=== PATIENT | female | born 1985 | race Caucasian/White ===

== ENCOUNTER 2017-11-01 16:54 | Outpatient (CLI) | payer MEDICAID ==
[2017-11-01] MEDS: LACTATED RINGER'S 1,000 ML IV* (17:50)
[2017-11-01] MEDS: ONDANSETRON 4 MG INJ IV (17:58)
[2017-11-01 18:15] LABS: ABNORMAL IP MESSAGE 1; HEMATOCRIT 38.1 % (37.0-47.0); HEMOGLOBIN 12.7 g/dl (12.0-16.0); MEAN CORPUSCULAR HEMOGLOBIN 27.9 pg (29.0-33.0); MEAN CORPUSCULAR HGB CONC 33.3 g/dl (32.0-37.0); MEAN CORPUSCULAR VOLUME 83.6 fl (82.0-101.0); PLATELET COUNT 319 10^3/UL (140-415); RED BLOOD COUNT 4.56 10^6/ul (4.20-5.40); RED CELL DISTRIBUTION WIDTH 13.9 % (11.5-14.5)
[2017-11-01 18:15] LABS: WHITE BLOOD COUNT 12.9 10^3/ul (4.8-10.8)
[2017-11-01 18:19] LABS: ADD MAN DIFF? YES; POSITIVE DIFF @See below
[2017-11-01 18:42] LABS: ANISOCYTOSIS 1+ (0-0); BAND NEUTROPHILS #M 0.7 10^3/ul (0.0-0.6); BAND NEUTROPHILS % (M) 6 % (0-4); LYMPHOCYTES #M 0.2 10^3/ul (0.8-2.9); LYMPHOCYTES % (M) 2 % (15-51); MICROCYTOSIS 1+ (0-0); PLATELET ESTIMATE NORMAL; SEGMENTED NEUTROPHILS (M) % 92 % (39-77); SMUDGE%M 2 % (0-0)
[2017-11-01 18:52] LABS: ADD UMIC YES; UR ASCORBIC ACID 40 mg/dL (NEGATIVE); UR BACTERIA FEW /HPF (NONE SEEN); UR BILIRUBIN (Dip) NEGATIVE (NEGATIVE); UR BLOOD (Dip) NEGATIVE (NEGATIVE); UR CLARITY CLOUDY (CLEAR); UR COLOR AMBER (YELLOW); UR GLUCOSE (Dip) 1+ mg/dL (NEGATIVE); UR KETONES (Dip) 2+ mg/dL (NEGATIVE); UR LEUKOCYTE ESTERASE (Dip) 2+ Leu/ul (NEGATIVE); UR MUCUS MANY /HPF (NONE SEEN); UR NITRITE (Dip) NEGATIVE (NEGATIVE); UR RBC 2 /HPF (0-5); UR SPECIFIC GRAVITY (Dip) 1.026 (1.003-1.030); UR SQUAMOUS EPITHELIAL CELL MANY /HPF (FEW); UR TOTAL PROTEIN (Dip) 2+ mg/dl (NEGATIVE); UR UROBILINOGEN (Dip) NEGATIVE (NEGATIVE); UR WBC 56 /HPF (0-5)
== END 2017-11-01 19:12 | disposition home or self-care (01) ==
LOC: OBT 16:54 → L-D 16:55 → OBT 19:12
DX: O23.43 Unspecified infection of urinary tract in pregnancy, third trimester (principal); Z3A.32 32 weeks gestation of pregnancy
CPT/HCPCS: 36415; 76817; 76818; 81001; 85025; 96360

== ENCOUNTER 2017-11-28 12:46 | Outpatient (CLI) | payer MEDICAID | END 2017-11-28 13:43 | disposition home or self-care (01) | LOC: OBT 12:46 → L-D 12:47 → OBT 13:43 | DX: O24.419 Gestational diabetes mellitus in pregnancy, unspecified control (principal); Z3A.36 36 weeks gestation of pregnancy | CPT/HCPCS: 76818 ==

== ENCOUNTER 2017-12-02 19:19 | Outpatient (CLI) | payer MEDICAID ==
[2017-12-02] MEDS: CITRIC ACID/SODIUM CITRATE 15 ML CUP PO (21:35)
[2017-12-02 21:46] LABS: ADD MAN DIFF? NO
[2017-12-02 22:06] LABS: WHITE BLOOD COUNT 8.7 10^3/ul (4.8-10.8)
[2017-12-02 22:06] LABS: BASOPHILS % 0.2 % (0.0-2.0); EOSINOPHILS # 0.1 10^3/ul (0.0-0.5); EOSINOPHILS % 0.9 % (0.0-7.0); HEMATOCRIT 33.1 % (37.0-47.0); LYMPHOCYTES # 1.7 10^3/ul (0.8-2.9); LYMPHOCYTES % 19.6 % (15.0-51.0); MEAN CORPUSCULAR HEMOGLOBIN 28.4 pg (29.0-33.0); MEAN CORPUSCULAR HGB CONC 33.2 g/dl (32.0-37.0); MEAN CORPUSCULAR VOLUME 85.3 fl (82.0-101.0); MEAN PLATELET VOLUME 9.9 fl (7.4-10.4); MONOCYTE # 0.5 10^3/ul (0.3-0.9); MONOCYTES % 5.6 % (0.0-11.0); NEUTROPHIL # 6.4 10^3/ul (1.6-7.5); NEUTROPHILS % 73.4 % (39.0-77.0); PLATELET COUNT 304 10^3/UL (140-415); RED BLOOD COUNT 3.88 10^6/ul (4.20-5.40); RED CELL DISTRIBUTION WIDTH 14.4 % (11.5-14.5)
[2017-12-02 22:20] LABS: ALANINE AMINOTRANSFERASE 22 IU/L (13-69); ALBUMIN 3.5 g/dl (3.3-4.9); ALBUMIN/GLOBULIN RATIO 1.06; ALKALINE PHOSPHATASE 156 IU/L (42-121); AMYLASE 66 U/L (11-123); ANION GAP 12 (8-16); ASPARTATE AMINO TRANSFERASE 22 IU/L (15-46); BILIRUBIN,INDIRECT 0.2 mg/dl (0-1.1); BILIRUBIN,TOTAL 0.2 mg/dl (0.2-1.3); BLOOD UREA NITROGEN 14 mg/dl (7-20); CALCIUM 9.2 mg/dl (8.4-10.2); CARBON DIOXIDE 22 mmol/L (21-31); CHLORIDE 108 mmol/L (97-110); CREATININE 0.68 mg/dl (0.44-1.00); GLUCOSE 136 mg/dl (70-220); LIPASE 75 U/L (23-300); SODIUM 138 mmol/L (135-144); TOTAL PROTEIN 6.8 g/dl (6.1-8.1); URIC ACID 4.4 mg/dl (3.1-7.9)
[2017-12-03 00:28] LABS: ADD UMIC NO; UR ASCORBIC ACID NEGATIVE (NEGATIVE); UR BILIRUBIN (Dip) NEGATIVE (NEGATIVE); UR BLOOD (Dip) NEGATIVE (NEGATIVE); UR CLARITY CLEAR (CLEAR); UR COLOR YELLOW (YELLOW); UR GLUCOSE (Dip) 1+ mg/dL (NEGATIVE); UR KETONES (Dip) NEGATIVE (NEGATIVE); UR LEUKOCYTE ESTERASE (Dip) NEGATIVE Leu/ul (NEGATIVE); UR NITRITE (Dip) NEGATIVE (NEGATIVE); UR SPECIFIC GRAVITY (Dip) 1.011 (1.003-1.030); UR TOTAL PROTEIN (Dip) NEGATIVE (NEGATIVE); UR UROBILINOGEN (Dip) NEGATIVE (NEGATIVE)
== END 2017-12-03 00:55 | disposition home or self-care (01) ==
LOC: OBT 19:19 → L-D 19:20
DX: O26.893 Other specified pregnancy related conditions, third trimester (principal); R10.13 Epigastric pain; Z3A.37 37 weeks gestation of pregnancy
CPT/HCPCS: 36415; 76705; 76818; 80053; 81003; 82150; 83690; 84560; 85025

== ENCOUNTER 2017-12-16 20:15 | Inpatient (IN) | payer MEDICAID ==
[2017-12-16] MEDS ORDERED: LIDOCAINE 1% (MPF) 30 ML INJ INJ (20:30)
[2017-12-16] MEDS ORDERED: BUTORPHANOL 2 MG INJ IV (20:30)
[2017-12-16] MEDS ORDERED: OXYTOCIN 30 UNITS/LR 500 ML IV (20:30)
[2017-12-16] MEDS ORDERED: MISOPROSTOL 200 MCG TAB PR (20:30)
[2017-12-16] MEDS ORDERED: IBUPROFEN 600 MG TAB PO (20:30)
[2017-12-16] MEDS ORDERED: CARBOPROST 250 MCG INJ IM (20:30)
[2017-12-16] MEDS ORDERED: METHYLERGONOVINE 0.2 MG INJ IM (20:30)
[2017-12-16] MEDS: LACTATED RINGER'S 1,000 ML IV (21:03)
[2017-12-16 21:22] LABS: ADD MAN DIFF? NO
[2017-12-16 21:23] LABS: WHITE BLOOD COUNT 8.8 10^3/ul (4.8-10.8)
[2017-12-16 21:23] LABS: BASOPHILS % 0.2 % (0.0-2.0); EOSINOPHILS % 0.1 % (0.0-7.0); HEMATOCRIT 35.1 % (37.0-47.0); HEMOGLOBIN 11.7 g/dl (12.0-16.0); LYMPHOCYTES % 23.1 % (15.0-51.0); MEAN CORPUSCULAR HEMOGLOBIN 28.2 pg (29.0-33.0); MEAN CORPUSCULAR HGB CONC 33.3 g/dl (32.0-37.0); MEAN CORPUSCULAR VOLUME 84.6 fl (82.0-101.0); MEAN PLATELET VOLUME 10.4 fl (7.4-10.4); MONOCYTE # 0.4 10^3/ul (0.3-0.9); MONOCYTES % 4.1 % (0.0-11.0); NEUTROPHIL # 6.4 10^3/ul (1.6-7.5); PLATELET COUNT 299 10^3/UL (140-415); RED BLOOD COUNT 4.15 10^6/ul (4.20-5.40); RED CELL DISTRIBUTION WIDTH 14.7 % (11.5-14.5)
[2017-12-16 21:47] LABS: AMPHETAMINE/METHAMPHETAMINE Negative (NEGATIVE); BARBITURATES Negative (NEGATIVE); BENZODIAZEPINES Negative (NEGATIVE); CANNABINOIDS Negative (NEGATIVE); COCAINE Negative (NEGATIVE); OPIATES Negative (NEGATIVE)
[2017-12-16 21:55] LABS: INR 0.88; PT RATIO 0.9
[2017-12-16 21:56] LABS: PARTIAL THROMBOPLASTIN TIME 25.5 Sec (25.0-35.0)
[2017-12-16 22:27] LABS: GLUCOSE 107 mg/dl (70-220)
[2017-12-17] MEDS: OXYTOCIN 30 UNITS/LR 500 ML IV ×4 (00:47→19:47)
[2017-12-17] MEDS: SENNA/DOCUSATE NA (8.6MG/50MG) TAB PO (01:00)
[2017-12-17] MEDS: LACTATED RINGER'S 1,000 ML IV ×4 (01:07→17:18)
[2017-12-17] MEDS ORDERED: FENTAnyl 2MCG/ML-ROPIV 0.2% 100 ML (05:23)
[2017-12-17] MEDS ORDERED: KETOROLAC 30 MG INJ IV (13:00)
[2017-12-17] MEDS ORDERED: HYDROmorphONE 0.5 MG/0.5 ML SYG IV ×2 (13:00)
[2017-12-17] MEDS ORDERED: DIPHENHYDRAMINE 50 MG INJ IV (13:00)
[2017-12-17] MEDS ORDERED: NALOXONE (0.4 MG/ML) INJ IV (13:00)
[2017-12-17] MEDS ORDERED: ONDANSETRON 4 MG INJ IV ×2 (13:00→14:00)
[2017-12-17] MEDS ORDERED: OXYTOCIN 30 UNITS/LR 500 ML IV ×4 (13:32→20:00)
[2017-12-17] MEDS ORDERED: NACL 0.9% 3 ML SYG IV ×2 (14:00→20:00)
[2017-12-17] MEDS ORDERED: METHYLERGONOVINE 0.2 MG INJ IM (14:00)
[2017-12-17] MEDS ORDERED: OXYCODONE/ASPIRIN (4.88/325) TAB PO ×4 (14:00→20:00)
[2017-12-17] MEDS ORDERED: CARBOPROST 250 MCG INJ IM ×2 (14:00→20:00)
[2017-12-17] MEDS ORDERED: WITCH HAZEL/GLYCERIN PAD PR (14:00)
[2017-12-17] MEDS ORDERED: BENZOCAINE 20% 56 ML SPRAY TOP (14:00)
[2017-12-17] MEDS ORDERED: LANOLIN 7 GM TUBE TOP (14:00)
[2017-12-17] MEDS ORDERED: MISOPROSTOL 200 MCG TAB PR ×2 (14:00→20:00)
[2017-12-17] MEDS: FENTAnyl 2MCG/ML-ROPIV 0.2% 100 ML BAG EPI (14:28)
[2017-12-17] MEDS: DEXTROSE 5%-LR 1,000 ML IV ×2 (16:43→17:19)
[2017-12-17] MEDS ORDERED: IBUPROFEN 600 MG TAB PO (18:00)
[2017-12-17] MEDS ORDERED: SENNA/DOCUSATE NA (8.6MG/50MG) TAB PO ×2 (20:00→21:00)
[2017-12-17] MEDS ORDERED: DIBUCAINE 1% 30 GM OINT PR (20:00)
[2017-12-17 20:07] LABS: RAPID PLASMA REAGIN NONREACTIVE (NR)
[2017-12-17] MEDS: IBUPROFEN 600 MG TAB PO (23:40)
[2017-12-17] MEDS: LANOLIN 7 GM TUBE TOP (23:41)
[2017-12-17] MEDS: WITCH HAZEL/GLYCERIN PAD PR (23:41)
[2017-12-17] MEDS: BENZOCAINE 20% 56 ML SPRAY TOP (23:41)
[2017-12-18] MEDS: LACTATED RINGER'S 1,000 ML IV ×2 (01:00→09:00)
[2017-12-18] MEDS: IBUPROFEN 600 MG TAB PO ×4 (05:46→23:34)
[2017-12-18] MEDS: ACCU-CHEK XX ×4 (07:30→20:34)
[2017-12-18 07:53] LABS: ADD MAN DIFF? NO
[2017-12-18 08:02] LABS: WHITE BLOOD COUNT 11.2 10^3/ul (4.8-10.8)
[2017-12-18 08:02] LABS: BASOPHILS % 0.2 % (0.0-2.0); EOSINOPHILS % 0.4 % (0.0-7.0); HEMATOCRIT 31.1 % (37.0-47.0); HEMOGLOBIN 10.3 g/dl (12.0-16.0); LYMPHOCYTES # 2.2 10^3/ul (0.8-2.9); LYMPHOCYTES % 19.9 % (15.0-51.0); MEAN CORPUSCULAR HEMOGLOBIN 28.2 pg (29.0-33.0); MEAN CORPUSCULAR HGB CONC 33.1 g/dl (32.0-37.0); MEAN CORPUSCULAR VOLUME 85.2 fl (82.0-101.0); MEAN PLATELET VOLUME 10.4 fl (7.4-10.4); MONOCYTE # 0.5 10^3/ul (0.3-0.9); MONOCYTES % 4.7 % (0.0-11.0); NEUTROPHIL # 8.3 10^3/ul (1.6-7.5); NEUTROPHILS % 74.4 % (39.0-77.0); PLATELET COUNT 231 10^3/UL (140-415); RED BLOOD COUNT 3.65 10^6/ul (4.20-5.40); RED CELL DISTRIBUTION WIDTH 14.5 % (11.5-14.5)
[2017-12-18] MEDS: SENNA/DOCUSATE NA (8.6MG/50MG) TAB PO ×2 (09:05→20:34)
[2017-12-19] MEDS: IBUPROFEN 600 MG TAB PO ×2 (05:31→12:33)
[2017-12-19] MEDS: ACCU-CHEK XX ×2 (08:00→10:05)
[2017-12-19] MEDS: SENNA/DOCUSATE NA (8.6MG/50MG) TAB PO (08:39)
== END 2017-12-19 14:10 | disposition home or self-care (01) | DRG 775 ==
LOC: L-D 20:15 → PP1 12-17 21:40
PROC: 10E0XZZ Delivery of Products of Conception, External Approach (ICD-10-PCS; principal; 2017-12-17)
PROC: 0HQ9XZZ Repair Perineum Skin, External Approach (ICD-10-PCS; 2017-12-17)
PROC: 3E033VJ Introduction of Other Hormone into Peripheral Vein, Percutaneous Approach (ICD-10-PCS; 2017-12-17)
DX: O69.81X0 Labor and delivery complicated by cord around neck, without compression, not applicable or unspecified (principal); O24.429 Gestational diabetes mellitus in childbirth, unspecified control; O13.4 Gestational [pregnancy-induced] hypertension without significant proteinuria, complicating childbirth; O70.9 Perineal laceration during delivery, unspecified; Z3A.39 39 weeks gestation of pregnancy; Z37.0 Single live birth
CPT/HCPCS: 62319; 76815; 80307; 82947; 82962; 85025; 85610; 85730; 86592; 86850; 86900; 86901

== ENCOUNTER 2017-12-23 15:48 | Emergency (ER) | payer BC, MEDICAID ==
[2017-12-23] MEDS: LIDOCAINE/MYLANTA 40 ML BTL PO (17:08)
[2017-12-23] MEDS: BELLADONNA/PHENOBARBITAL TAB PO (17:08)
[2017-12-23] MEDS: HYDROCODONE/APAP (5/325) TAB PO (17:08)
[2017-12-23] MEDS: FAMOTIDINE 20 MG TAB PO (17:08)
[2017-12-23 17:25] LABS: ADD MAN DIFF? NO
[2017-12-23 17:27] LABS: WHITE BLOOD COUNT 8.3 10^3/ul (4.8-10.8)
[2017-12-23 17:27] LABS: BASOPHILS % 0.2 % (0.0-2.0); EOSINOPHILS % 0.5 % (0.0-7.0); HEMATOCRIT 34.6 % (37.0-47.0); HEMOGLOBIN 11.3 g/dl (12.0-16.0); LYMPHOCYTES # 1.5 10^3/ul (0.8-2.9); LYMPHOCYTES % 17.9 % (15.0-51.0); MEAN CORPUSCULAR HEMOGLOBIN 28.5 pg (29.0-33.0); MEAN CORPUSCULAR HGB CONC 32.7 g/dl (32.0-37.0); MEAN CORPUSCULAR VOLUME 87.2 fl (82.0-101.0); MEAN PLATELET VOLUME 9.6 fl (7.4-10.4); MONOCYTE # 0.5 10^3/ul (0.3-0.9); MONOCYTES % 5.8 % (0.0-11.0); NEUTROPHIL # 6.3 10^3/ul (1.6-7.5); NEUTROPHILS % 75.1 % (39.0-77.0); PLATELET COUNT 340 10^3/UL (140-415); RED BLOOD COUNT 3.97 10^6/ul (4.20-5.40); RED CELL DISTRIBUTION WIDTH 14.3 % (11.5-14.5)
[2017-12-23 17:52] LABS: ADD UMIC YES; UR ASCORBIC ACID NEGATIVE (NEGATIVE); UR BILIRUBIN (Dip) NEGATIVE (NEGATIVE); UR BLOOD (Dip) 3+ mg/dL (NEGATIVE); UR CLARITY CLEAR (CLEAR); UR COLOR YELLOW (YELLOW); UR GLUCOSE (Dip) NEGATIVE (NEGATIVE); UR KETONES (Dip) NEGATIVE (NEGATIVE); UR LEUKOCYTE ESTERASE (Dip) 1+ Leu/ul (NEGATIVE); UR MUCUS FEW /HPF (NONE SEEN); UR NITRITE (Dip) NEGATIVE (NEGATIVE); UR RBC 92 /HPF (0-5); UR SPECIFIC GRAVITY (Dip) 1.019 (1.003-1.030); UR TOTAL PROTEIN (Dip) NEGATIVE (NEGATIVE); UR UROBILINOGEN (Dip) NEGATIVE (NEGATIVE); UR WBC 8 /HPF (0-5)
[2017-12-23 17:56] LABS: ALANINE AMINOTRANSFERASE 38 IU/L (13-69); ALBUMIN 3.8 g/dl (3.3-4.9); ALBUMIN/GLOBULIN RATIO 1.08; ALKALINE PHOSPHATASE 171 IU/L (42-121); ANION GAP 15 (8-16); ASPARTATE AMINO TRANSFERASE 39 IU/L (15-46); BILIRUBIN,INDIRECT 0.2 mg/dl (0-1.1); BILIRUBIN,TOTAL 0.2 mg/dl (0.2-1.3); BLOOD UREA NITROGEN 17 mg/dl (7-20); CALCIUM 9.4 mg/dl (8.4-10.2); CARBON DIOXIDE 25 mmol/L (21-31); CHLORIDE 109 mmol/L (97-110); CREATININE 0.69 mg/dl (0.44-1.00); GLUCOSE 120 mg/dl (70-220); LIPASE 91 U/L (23-300); POTASSIUM 4.2 mmol/L (3.5-5.1); SODIUM 145 mmol/L (135-144); TOTAL PROTEIN 7.3 g/dl (6.1-8.1)
== END 2017-12-23 19:15 | disposition home or self-care (01) ==
LOC: FTE 15:48
DX: K80.20 Calculus of gallbladder without cholecystitis without obstruction (principal)
CPT/HCPCS: 36415; 76705; 80053; 81001; 81025; 83690; 85025; 99284-25